=== PATIENT | male | born 1985 | race Caucasian/White ===

== ENCOUNTER 2022-04-17 19:19 | Emergency (ER) | payer MEDICARE, MEDICAID, SELFPAY ==
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
[2022-04-17 19:30] VITALS: BP 159/87; PULSE 93; RESP 16; TEMP 37.8; O2SAT 98
[2022-04-17 19:47] VITALS: BP 159/87; PULSE 93; RESP 16; TEMP 37.8; O2SAT 98
[2022-04-17] MEDS: SILVER SULFADIAZINE 1% CR 50 GM JAR (*BKC) 1 APPLIC TOPICAL (20:07)
[2022-04-17] MEDS: TETANUS,DIPHTHERIA,AC PERTUSSIS ADULT (0.5 ML) BOOSTRIX IM (20:07)
== END 2022-04-17 20:15 | disposition home or self-care (01) ==
PROVIDERS: Emergency Provider Nurse Practitioner
DX: L55.1 Sunburn of second degree (principal); Z23 Encounter for immunization
CPT/HCPCS: 90471; 90715; 99213; A9270; G0463